=== PATIENT | female | born 1960 | race Caucasian/White ===

== ENCOUNTER → 2016-04-28 | Outpatient (CLI) | payer OTHER | LOC: RAD 04-24 09:00 | DX: N28.1 Cyst of kidney, acquired (principal); R31.29 Other microscopic hematuria; Z88.5 Allergy status to narcotic agent | CPT/HCPCS: 74400; Q9962 ==

== ENCOUNTER → 2020-05-06 | Outpatient (CLI) | payer OTHER | LOC: HEART 5 11:16 | DX: J44.9 Chronic obstructive pulmonary disease, unspecified (principal) | CPT/HCPCS: 94010 ==